=== PATIENT | male | born 1995 | race American Indian/Alaskan Native ===

== ENCOUNTER 2017-01-08 20:40 | Emergency (ER) | payer BC ==
[2017-01-08 21:19] LABS: Bilirubin,Urine NEG (Negative); Blood,Urine SM (Negative); Ketones,Urine NEG (Negative); Leukocyte Esterase,Urine LG (Negative); Nitrite,Urine NEG (Negative); Protein,Urine <15 mg/dL mg/dL (Negative); Urobilinogen,Urine < 2.0 mg/dL (<2.0)
[2017-01-08 21:29] LABS: RBC,Urine < 1.0 /HPF (0.0-6.0)
--- NOTE | 2017-01-09 07:27 | Emergency Department Report ---
ED Male HPI - General Chief complaint: Urogenital-Male Stated complaint: POSSIBLE UTI Time Seen by Provider: 01/09/17 07:23 Source: patient Mode of arrival: Ambulatory Limitations: No Limitations - History of Present Illness Initial comments: Patient reports that his penis staples when he urinates. State that the his kidneys are starting to hurt. It was reported in triage and on the patient's as kidney stones or starting to hurt but patient denies he said he doesn't have any history of kidney stones he's just that his kidneys are starting to hurt. Denies any nausea or vomiting. Denies any back pain or flank pain. This started 3 days ago. Denies any blood in urine. Patient said he had sex 3 weeks ago and it was protected. He denies ever having unprotected sex. He admits to having yellow penile discharge. Denies any abdominal pain. Denies any fever or chills. Pain urinated burn in 4-10 better without urinating. Patient denies any history of having kidney stones although it was reported on triage note that patient has a history of kidney stones. Denies any blood in his urine. Patient said he use [id number] MD Complaint: penile discharge, dysuria Onset/Timin -: days(s) Location: penis Radiation: none Severity: mild Severity scale (0 -10): 4 Quality: burning Consistency: constant Improves with: medication (took meds for burning) Worsens with: urination - Related Data Sexually active: Yes Previous Rx's Medication Instructions Recorded Last Taken Type Ciprofloxacin HCl [Ciprofloxacin 500 mg PO Q12HR #20 tab 01/09/17 Unknown Rx TAB] Phenazopyridine [Pyridium] 100 mg PO TID PRN #9 tab 01/09/17 Unknown Rx Allergies Allergy/AdvReac Type Severity Reaction Status Date / Time No Known Allergies Allergy Unverified 01/08/17 20:57 ED Review of Systems ROS: Stated complaint: POSSIBLE UTI Other details as noted in HPI Comment: All other systems reviewed and negative Constitutional: no symptoms reported Eyes: denies: eye pain, vision change ENT: denies: throat pain, congestion Respiratory: no symptoms reported Cardiovascular: denies: chest pain, palpitations, edema, syncope Gastrointestinal: denies: abdominal pain, nausea, vomiting, diarrhea, constipation, hematemesis, melena Genitourinary: dysuria, discharge. denies: urgency, frequency, hematuria, testicular pain, testicular mass Musculoskeletal: denies: back pain, joint swelling, arthralgia, myalgia Skin: denies: rash Neurological: denies: headache, weakness, numbness, paresthesias, confusion, abnormal gait, vertigo ED Past Medical Hx - Past Medical History Previous Medical History?: No Hx Kidney Stones: No - Surgical History Past Surgical History?: No - Family History Family history: no significant - Social History Smoking Status: Never Smoker Substance Use Type: None - Medications Home Medications: Home Medications Medication Instructions Recorded Confirmed Last Taken Type Ciprofloxacin HCl [Ciprofloxacin 500 mg PO Q12HR #20 tab 01/09/17 Unknown Rx TAB] Phenazopyridine [Pyridium] 100 mg PO TID PRN #9 tab 01/09/17 Unknown Rx ED Physical Exam - General Limitations: No Limitations General appearance: alert, in no apparent distress - Head Head exam: Present: atraumatic, normocephalic, normal inspection - Eye Eye exam: Present: normal appearance, PERRL, EOMI Pupils: Present: normal accommodation - ENT ENT exam: Present: normal exam, normal orophraynx, mucous membranes moist - Neck Neck exam: Present: normal inspection, full ROM, other (no CVA tenderness). Absent: tenderness, meningismus, lymphadenopathy - Respiratory Respiratory exam: Present: normal lung sounds bilaterally. Absent: respiratory distress, wheezes, rales, rhonchi, stridor, chest wall tenderness, accessory muscle use, decreased breath sounds, prolonged expiratory - Cardiovascular Cardiovascular Exam: Present: regular rate, normal rhythm, normal heart sounds. Absent: systolic murmur, diastolic murmur - GI/Abdominal GI/Abdominal exam: Present: soft, normal bowel sounds. Absent: distended, tenderness, guarding, rebound, rigid, organomegaly, mass, bruit, pulsatile mass , hernia - Extremities Exam Extremities exam: Present: normal inspection, full ROM, normal capillary refill , other (no clubbing, cyanosis or edema. +2 pulses in all extremity and no neurovascular compromise). Absent: tenderness, pedal edema, joint swelling, calf tenderness - Back Exam Back exam: Present: normal inspection, full ROM. Absent: tenderness, CVA tenderness (R), CVA tenderness (L), muscle spasm, paraspinal tenderness, vertebral tenderness, rash noted - Neurological Exam Neurological exam: Present: alert, oriented X3, normal gait - Psychiatric Psychiatric exam: Present: normal affect, normal mood - Skin Skin exam: Present: warm, dry, intact, normal color. Absent: rash ED Course Vital Signs 01/08/17 01/08/17 01/09/17 20:57 23:25 04:55 Temperature 99.3 F 98.2 F 98.6 F Pulse Rate 80 83 77 Respiratory 18 18 18 Rate Blood Pressure 142/75 126/83 142/82 Blood Pressure [Left] O2 Sat by Pulse 98 97 98 Oximetry 01/09/17 08:44 Temperature Pulse Rate 74 Respiratory 18 Rate Blood Pressure Blood Pressure 140/80 [Left] O2 Sat by Pulse 98 Oximetry - Reevaluation(s) Reevaluation #1: 01/09/17 09:32 Patient has urinary tract infection. Large amount of leukocyte Estrace small amount of blood. Reported urine color is red but patient said that he did not have any blood in his urine. Patient and after discussion, chose to be treated empirically for STD to include gonorrhea, chlamydia and Trichomonas due to penile discharge. Patient was given Rocephin 1 g IM, Flagyl 2 g by mouth and azithromycin 1 g by mouth without any adverse reaction. ED Medical Decision Making - Lab Data Lab Results 01/08/17 Range/Units 21:03 Urine Color Red (Yellow) Urine Turbidity Clear (Clear) Urine pH 7.0 (5.0-7.0) Ur Specific [place] 1.001 L (1.003-1.030) Urine Protein <15 mg/dl (Negative) mg/dL Urine Glucose (UA) Neg (Negative) mg/dL Urine Ketones Neg (Negative) mg/dL Urine Blood Sm (Negative) Urine Nitrite Neg (Negative) Urine Bilirubin Neg (Negative) Urine Urobilinogen < 2.0 (<2.0) mg/dL Ur Leukocyte Esterase Lg (Negative) Urine WBC (Auto) 1.0 (0.0-6.0) /HPF Urine RBC (Auto) < 1.0 (0.0-6.0) /HPF Urine culture sent and pending Gonorrhea and Chlamydia sent and pending - Radiology Data Radiology results: report reviewed CT scan of the abdomen and pelvis without contrast shows no radiopaque renal calculi or evidence of obstruction. Few small nonspecific external iliac and inguinal lymph nodes. Slightly more prominent on the left. No hydronephrotic kidneys without definite radiopaque renal calculi. No perinephric stranding. GI tract revealed no obstruction. Stomach nondistended with diffuse exaggerated wall thickness. Normal appendix. Mild colonic stool. Unremarkable liver, spleen, gallbladder, pancreas and adrenal glands. Non- aneurysm abdominal aortic murmur. No ascites. - Medical Decision Making ED course: here complaining of urinary burning in and believes that he has a urinary tract infection he also reports that he has yellow discharge from his penis. Patient states that he's been taking [id number] medication for urinary burning but he wants to get checked to see if he have a urinary tract infection. Patient said the last time that he had sex was 3 weeks ago and he uses a condom. He said he never had unprotected sex. Analysis positive for large amount of leukocyte Estrace small amount of blood, urine culture sent and pending, urine gonorrhea and chlamydia sent and pending. I discussed lab results patient. CT scan revealed no obstruction, no perinephric stranding, no renal calculi or evidence of obstruction. Incidental finding for mesenteric lymph node and inguinal lymph nodes. I also discussed CT scan result with patient. Patient denies that he have any history of kidney stones. I discussed with patient that he has a UTI and will be treated and I told him that he has yellow discharge which is not normal for male to have a yellow discharge and patient chose to be treated empirically in emergency room for STDs. Patient was given Rocephin 1 g IM which will cover gonorrhea and start coverage for urinary tract infection, treated for chlamydia with azithromycin 1 g by mouth and Flagyl 2 g by mouth for Trichomonas. He had no adverse reaction from medication. She does have a primary care physician so I told him that he needs to follow up with his primary care physician in a couple days and also to follow up with [facility] for STD test then in 7-10 days and to refrain from having sex for the next 2 weeks. Also told him that he needs not to drink or call for the next 7 days as medication given for STD interacts negatively with all all. He was nondistended discharge instruction and treatment plan and discharged home in stable condition with prescription for ciprofloxacin and Pyridium Critical care attestation.: If time is entered above; I have spent that time in minutes in the direct care of this critically ill patient, excluding procedure time. ED Disposition Clinical Impression: Acute cystitis with hematuria, Dysuria, Concern about STD in male without diagnosis, Penile discharge Disposition: DC-01 TO HOME OR SELFCARE Is pt being admited?: No Does the pt Need Aspirin: No Condition: Stable Instructions: Dysuria (ED), Safe Sex (ED), Urinary Tract Infection in Men (ED) , Sexually Transmitted Diseases (ED) Additional Instructions: Please refrain from having sexual activity for the next 2 weeks. Follow-up with your primary care physician in 2 days Follow up with [facility] 7-10 days for repeat STD check You were treated today gonorrhea and chlamydia tests will be back in 5-7 days. You were treated today in emergency room for gonorrhea, chlamydia and Trichomonias. Practice safe sex These do not drink alcohol for the next 7 days as this will interact negatively with medication given for STD. Tell partner know that you're treated for STD and hospital today. increase her fluid intake Take medication as prescribed. Prescriptions: Ciprofloxacin HCl [Ciprofloxacin TAB] 500 mg PO Q12HR #20 tab Phenazopyridine [Pyridium] 100 mg PO TID PRN #9 tab PRN Reason: URINE BURNING Referrals: PRIMARY CAREMD [Primary Care Provider] - 01/11/17 [facility] Depart [Outside] - 7-10 days Forms: Work/School Release Form(ED)
--- NOTE | 2017-01-09 08:37 | Cat Scan Report ---
CT ABDOMEN AND PELVIS WITHOUT CONTRAST INDICATION: Blood in urine with UTI. COMPARISON: None similar at this institution. FINDINGS: Noncontrast abdomen and pelvis CT performed. LUNG BASES: Borderline cardiomegaly. Slight nonspecific distal esophageal wall prominence/thickening, not excluded for gastroesophageal reflux and/or hiatal hernia, amongst others. ABDOMEN: Please note that sensitivity to detect small visceral lesions is limited due to the absence of intravenous or oral contrast. However, grossly unremarkable unenhanced liver, spleen, gallbladder, pancreas, adrenals, non-aneurysmal abdominal aorta and the IVC. No ascites or size significant retroperitoneal adenopathy. Few right lower quadrant mesenteric lymph nodes measure up to 0.9 cm, axial image 170, series 2. Nonopacified GI tract evaluation limited, though grossly nonobstructive. Stomach nondistended with diffuse exaggerated wall thickness. Normal appendix. Mild colonic stool. Specifically, nonhydronephrotic kidneys without definite radiopaque renal calculi. No perinephric stranding. PELVIS: Urinary bladder, seminal vesicles and prostate within normal limits. Few small pelvic phleboliths. Mild rectosigmoid stool. Few bilateral external iliac lymph nodes measure up to 1.3 cm on the left axial image 311, series 2. Few bilateral inguinal lymph nodes as well, slightly more prominent on the left measuring up to 1.7 x 1.1 cm, axial image 340 with subtle surrounding fat stranding. Small bilateral fat-containing inguinal hernias measure up to 2.8 cm on the left and 2.3 cm on the right, axial image 325. Age-appropriate, unremarkable bones. CONCLUSION: 1. No radiopaque renal calculi or evidence of obstruction on this unenhanced exam. 2. Few small nonspecific external iliac and inguinal lymph nodes, slightly more prominent on the left. Please correlate. 3. Other incidental findings, as above. Thank you for the opportunity to participate in this patient's care.
[2017-01-09 08:45] VITALS: BP 140/80
[2017-01-09] MEDS ORDERED: ROCEPHIN IM STA (08:47)
[2017-01-09] MEDS ORDERED: FLAGYL PO ONE (08:48)
[2017-01-09] MEDS ORDERED: ZITHROMAX PO ONE (08:48)
[2017-01-09] MEDS ORDERED: XYLOCAINE 1% MPF 5 mL INFILTRATI ONE (08:48)
== END 2017-01-09 10:21 | disposition home or self-care (01) ==
LOC: ED 20:40
DX: N30.01 Acute cystitis with hematuria (principal); R30.0 Dysuria; R36.9 Urethral discharge, unspecified
CPT/HCPCS: 74176; 81001; 87086; 87591; 96372; 99284; J0696